=== PATIENT | male | born 1970 | race Caucasian/White ===

== ENCOUNTER 2017-03-10 16:56 | Observation (INO) | payer SELFPAY ==
[~2017-03-10] VITALS: Ht 182.9 cm; Wt 120.0 kg
[~2017-03-10 16:56] MED LIST: ALPR.5 PO; HYDR-3535 PO; LISI-515 PO
[2017-03-10 17:18] VITALS: BP 156/87; PULSE 85; RESP 18; TEMP 99.1; O2SAT 94
[2017-03-10 17:28] VITALS: BP 156/87; PULSE 95; RESP 18; TEMP 99.1; O2SAT 95
[2017-03-10] MEDS ORDERED: ASPI81CH CHEW (17:33)
[2017-03-10] MEDS ORDERED: AMLO5TAB2 PO (17:33)
[2017-03-10 18:00] VITALS: O2SAT 98
--- NOTE | 2017-03-10 18:09 | PD ---
HPI Chief Complaint: Chest Pain Time Seen by Provider: 18:06 Travel History International Travel<30 days: No Contact w/Intl Traveler<30days: No Traveled to known affect area: No History of Present Illness HPI 46-year-old male presents to the emergency department via EMS for evaluation of sharp chest pain that started today. He states that he woke up with sharp left- sided chest pain this morning. It went away, but resumed when he was going to a around 2 PM. He states the sharp lasting only a few seconds at a time. The patient states the EMS gave him aspirin and 1 spray of nitroglycerin , which did help his pain. He states that he had similar pain back in January went to [facility], [place]. He states he had a stress test done at that time. He does not know the results, but was discharged. 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 He reports history of hypertension and is on lisinopril and amlodipine. Patient is chest pain-free at this time. He denies any recent surgery or travel. No hemoptysis. No leg edema. No history DVT or PE. No history of cancer. PFSH Past Medical History Hx Anticoagulant Therapy: No Anxiety: Yes Heart Rhythm Problems: Yes Cardiovascular Problems: Yes (HTN ) Chemotherapy: No Diabetes: No Diminished Hearing: No Hypertension: Yes Respiratory: No Tetanus Vaccination: < 5 Years Influenza Vaccination: No ?: Not Past Surgical History Hysterectomy: No Social History Alcohol Use: Yes (OCCASIONAL) Tobacco Use: No Substance Use: No (MARIJUANA OCCASIONALLY) Allergies-Medications (Allergen,Severity, Reaction): Coded Allergies: No Known Allergies (Unverified , 07/23/16) Reported Meds & Prescriptions Reported Meds & Active Scripts Active Lisinopril 20 Mg Tab 20 Mg PO DAILY Reported Aspirin 81 Mg Chew 81 Mg CHEW DAILY Amlodipine (Amlodipine Besylate) 5 Mg Tab 5 Mg PO DAILY Lortab (Hydrocodone-Acetaminophen) 10-325 Mg Tab 1 Tab PO Q4H PRN Xanax (Alprazolam) 0.5 Mg Tab 0.5 Mg PO BID PRN Review of Systems Except as stated in HPI: all other systems reviewed are Neg Physical Exam Narrative GENERAL: Well-nourished, well-developed male patient, ambulatory. Afebrile. SKIN: Focused skin assessment warm/dry. HEAD: Normocephalic. Atraumatic. EYES: No scleral icterus. No injection or drainage. NECK: Supple, trachea midline. No JVD or lymphadenopathy. CARDIOVASCULAR: Regular rate and rhythm without murmurs, gallops, or rubs. RESPIRATORY: Breath sounds equal bilaterally. No accessory muscle use. Lungs sounds are clear to auscultation. GASTROINTESTINAL: Abdomen soft, non-tender, nondistended. MUSCULOSKELETAL: No cyanosis, or edema. BACK: Nontender without obvious deformity. No CVA tenderness. Data Data Last Documented VS Vital Signs Date Time Temp Pulse Resp B/P Pulse Ox O2 Delivery O2 Flow Rate FiO2 03/10/17 20:20 98 18 132/72 97 Room Air 03/10/17 17:28 99.1 Orders Basic Metabolic Panel (Bmp) (03/10/17 18:05) Ckmb (Isoenzyme) Profile (03/10/17 18:05) Complete Blood Count With Diff (03/10/17 18:05) Magnesium (Mg) (03/10/17 18:05) Prothrombin Time / Inr (Pt) (03/10/17 18:05) Act Partial Throm Time (Ptt) (03/10/17 18:05) Troponin I (03/10/17 18:05) Chest, Single Ap (03/10/17 18:05) Ecg Monitoring (03/10/17 18:05) Bilateral Bp Monitoring (03/10/17 18:05) Iv Access Insert/Monitor (03/10/17 18:05) Oximetry (03/10/17 18:05) Oxygen Administration (03/10/17 18:05) Sodium Chloride 0.9% Flush (Ns Flush) (03/10/17 18:15) Electrocardiogram (03/10/17 17:21) Labs Laboratory Tests Test 03/10/17 18:00 White Blood Count 8.4 TH/MM3 Red Blood Count 4.65 MIL/MM3 Hemoglobin 14.5 GM/DL Hematocrit 41.7 % Mean Corpuscular Volume 89.7 FL Mean Corpuscular Hemoglobin 31.2 PG Mean Corpuscular Hemoglobin 34.7 % Concent Red Cell Distribution Width 14.0 % Platelet Count 132 TH/MM3 Mean Platelet Volume 10.8 FL Neutrophils (%) (Auto) 56.4 % Lymphocytes (%) (Auto) 30.4 % Monocytes (%) (Auto) 10.5 % Eosinophils (%) (Auto) 1.2 % Basophils (%) (Auto) 1.5 % Neutrophils # (Auto) 4.7 TH/MM3 Lymphocytes # (Auto) 2.6 TH/MM3 Monocytes # (Auto) 0.9 TH/MM3 Eosinophils # (Auto) 0.1 TH/MM3 Basophils # (Auto) 0.1 TH/MM3 CBC Comment DIFF FINAL Differential Comment Prothrombin Time 11.8 SEC Prothromb Time International 1.1 RATIO Ratio Activated Partial 28.4 SEC Thromboplast Time Sodium Level 138 MEQ/L Potassium Level 3.8 MEQ/L Chloride Level 105 MEQ/L Carbon Dioxide Level 25.8 MEQ/L Anion Gap 7 MEQ/L Blood Urea Nitrogen 17 MG/DL Creatinine 0.83 MG/DL Estimat Glomerular Filtration 101 ML/MIN Rate Random Glucose 106 MG/DL Calcium Level 9.0 MG/DL Magnesium Level 2.3 MG/DL Total Creatine Kinase 55 U/L Troponin I LESS THAN 0.02 NG/ML MDM Medical Decision Making Medical Screen Exam Complete: Yes Emergency Medical Condition: Yes Medical Record Reviewed: Yes Interpretation(s) Last Impressions Chest X-Ray 03/10/171804 Signed Impressions: Service Date/Time: , March 10, 2017 18:06 - CONCLUSION: The lungs are clear. Clif Andres MD Differential Diagnosis Atypical chest pain versus ACS versus pneumonia versus pneumothorax Narrative Course 46-year-old male presents to the emergency department via EMS for evaluation of sharp intermittent left-sided chest pain that started this morning and worsened on his way to a . He states he recently had a stress test at [facility], [place]. I will attempt to obtain these records. Patient is chest pain-free at this time. He received nitroglycerin 1 and aspirin via EMS. EKG shows SR, HR 89, no acute ST changes. CBC, BMP, CK, troponin, magnesium, PTT, PT/INR, chest x-ray are ordered and pending. CBC shows no acute abnormality. BMP is unremarkable. CK is 55. Troponin is less than 0.02. Magnesium is 2.3. Coags are unremarkable. Chest x-ray shows t he lungs are clear. I receive the records from [facility], [place]. On stress test report, it is normal, but then on the discharge summary as well as a stress test was abnormal does not give details. Patient states he had to jump off the treadmill due to his heart racing. I discussed this with my attending physician , Dr. Chandler, who recommends admission to chest pain center for serial EKG and enzymes. The patient agrees to this. Diagnosis Primary Impression: Chest pain Qualified Code: R07.9 - Chest pain, unspecified type Admitting Information Admitting Physician Requests: Brit Barclay Mar 10, 2017 18:09
[2017-03-10] MEDS ORDERED: SODIUM CHLORIDE 0.9% FLUSH 10 ML FLUSH IVF PRN (18:15)
[2017-03-10 18:22] LABS: AUTOMATED NEUTROPHIL # 4.7 TH/MM3 (1.8-7.7); BASOPHIL # 0.1 TH/MM3 (0-0.2); BASOPHIL % 1.5 % (0.0-2.0); EOSINOPHIL # 0.1 TH/MM3 (0-0.4); EOSINOPHIL % 1.2 % (0.0-4.0); HEMATOCRIT 41.7 % (39.0-51.0); HEMO FLAGS DIFF FINAL; LYMPH % 30.4 % (9.0-44.0); LYMPHOCYTE # 2.6 TH/MM3 (1.0-4.8); MEAN CELL VOLUME 89.7 FL (80.0-100.0); MEAN CORPUSCULAR HEMOGLOBIN 31.2 PG (27.0-34.0); MEAN CORPUSCULAR HGB CONC 34.7 % (32.0-36.0); MONO % 10.5 % (0.0-8.0); NEUT % 56.4 % (16.0-70.0); PLATELET COUNT 132 TH/MM3 (150-450); RED BLOOD COUNT 4.65 MIL/MM3 (4.50-5.90); WHITE BLOOD COUNT 8.4 TH/MM3 (4.0-11.0)
[2017-03-10 18:39] LABS: ANION GAP 7 MEQ/L (5-15); BICARBONATE 25.8 MEQ/L (21.0-32.0); BLOOD UREA NITROGEN 17 MG/DL (7-18); CHLORIDE 105 MEQ/L (98-107); GLOMERULAR FILTRATION RATE 101 ML/MIN (>89); MAGNESIUM 2.3 MG/DL (1.5-2.5); POTASSIUM 3.8 MEQ/L (3.5-5.1); SODIUM (NA) 138 MEQ/L (136-145)
[2017-03-10 18:44] LABS: CREATINE KINASE 55 U/L (39-308)
[2017-03-10 19:20] LABS: APTT (PATIENT) 28.4 SEC (24.3-30.1); INTERNATIONAL NORMALIZED RATIO 1.1 RATIO; PROTHROMBIN TIME - PATIENT 11.8 SEC (9.8-11.6)
[2017-03-10 19:30] VITALS: BP 139/81; PULSE 87; RESP 18; O2SAT 95
--- NOTE | 2017-03-10 19:34 | RADRPT ---
EXAM DATE/TIME: 03/10/2017 18:06 [facility] COMPARISON: No previous studies available for comparison. INDICATIONS : Patient has had chest pain since this morning. MEDICAL HISTORY : Hypertension. SURGICAL HISTORY : None. ENCOUNTER: Initial ACUITY: 1 day PAIN SCORE: 8/10 LOCATION: Bilateral chest FINDINGS: A single view of the chest demonstrates the lungs to be symmetrically aerated without evidence of mas s, infiltrate or effusion. The cardiomediastinal contours are unremarkable. Osseous structures are intact. CONCLUSION: The lungs are clear. Clif Andres MD on March 10, 2017 at 19:32 Board Certified Radiologist. This report was verified electronically.
[2017-03-10 20:20] VITALS: BP 132/72; PULSE 98; RESP 18; O2SAT 97
[2017-03-10 23:31] VITALS: BP 134/68
[2017-03-10 23:44] LABS: CREATINE KINASE 39 U/L (39-308)
[2017-03-11 01:22] LABS: CREATINE KINASE 42 U/L (39-308)
[2017-03-11 05:28] VITALS: BP 128/67; PULSE 67; RESP 21; TEMP 98.4; O2SAT 100
[2017-03-11 06:14] VITALS: PULSE 74
[2017-03-11 06:15] VITALS: PULSE 74
[2017-03-11 07:02] VITALS: BP 141/68; PULSE 64; RESP 21; TEMP 97.8; O2SAT 100
[2017-03-11 07:34] VITALS: BP 136/67; PULSE 75; RESP 18; TEMP 98.8; O2SAT 95
--- NOTE | 2017-03-11 08:19 | HHI.DCPOC ---
Discharge Care Plan Diagnosis: (1) Chest pain (2) Hypertension (3) Anxiety Goals to Promote Your Health * To prevent worsening of your condition and complications * To maintain your health at the optimal level Directions to Meet Your Goals Take your medications as prescribed Follow your dietary instruction Follow activity as directed Keep your appointments as scheduled Take your immunizations and boosters as scheduled If your symptoms worsen call your PCP, if no PCP go to Urgent Care Center or Emergency Room Smoking is Dangerous to Your Health. Avoid second hand smoke Call the 24-hour hour crisis hotline for domestic abuse at Alexis Macdonald Mar 11, 2017 08:19
[2017-03-11] MEDS ORDERED: SODIUM CHLORIDE 0.9% FLUSH 10 ML FLUSH IV FLUSH SCH (09:00)
--- NOTE | 2017-03-11 09:09 | HHI.HP ---
HPI Primary Care Physician No Primary Care Physician Chief Complaint Chest pain History of Present Illness This is a 46-year-old male that presents to ED with a point of chest discomfort. He'll left-sided sharp discomfort that'll last a few seconds at time but continue to recur. It began while he was driving to one of his best friends funerals. His best friend is from electrocution. He was short of breath and nauseous with the symptoms. No diaphoresis. Denies prior knowledge of coronary artery disease and states he had a workup recently at [facility]. Upon reviewing records had a nonischemic Sage protocol ETT one month ago. Patient states "I felt like I was being overwhelmed." He does suffer from anxiety and takes Xanax when necessary for this. Denies recent illness. Denies fevers or chills. Review of Systems General: Patient denies fevers, chills recent, and recent travel HEENT: Patient denies headache, sore throat, difficulty swallowing. Cardiovascular: Has the chest discomfort as mentioned above. Denies sensation of heart beating rapidly or irregularly. No syncope. Respiratory: He was short of breath. Denies inspirational chest discomfort. Denies coughing wheezing or hemoptysis. GI: He was nauseous. Patient denies vomiting, diarrhea, abdominal pain, bloody stools. Musculoskeletal: Patient denies joint pain or edema. Denies calf pain or edema. Neurovascular: Patient denies numbness, tingling, weakness in extremities. Denies headache. Endocrine: Denies polyuria and polydipsia. Hematologic: Denies easy bruising. Skin: Denies rash or itching. Past Family Social History Allergies: Coded Allergies: No Known Allergies (Unverified , 07/23/16) Past Medical History Hypertension, chronic back pain, anxiety. Denies diabetes, hyperlipidemia, and CAD. Past Surgical History Denies Reported Medications Reported Meds & Active Scripts Active Lisinopril 20 Mg Tab 20 Mg PO DAILY Reported Aspirin 81 Mg Chew 81 Mg CHEW DAILY Amlodipine (Amlodipine Besylate) 5 Mg Tab 5 Mg PO DAILY Lortab (Hydrocodone-Acetaminophen) 10-325 Mg Tab 1 Tab PO Q4H PRN Xanax (Alprazolam) 0.5 Mg Tab 0.5 Mg PO BID PRN Active Ordered Medications Current Medications Medications (Trade) Dose Ordered Sig/Vidya Route Start Time Stop Time Status Last Admin (NS Flush) 2 ml UNSCH PRN IVF 03/10/17 18:15 (NS Flush) 2 ml BID IV FLUSH 03/11/17 09:00 03/11/17 00:06 Family History Mother had a CABG a 46. Father at age 62 of a myocardial infarction. Social History Patient is a nonsmoker. Denies alcohol. Smokes marijuana occasionally. Physical Exam Vital Signs Vital Signs Date Time Temp Pulse Resp B/P Pulse Ox O2 Delivery O2 Flow Rate FiO2 03/11/17 08:10 21 03/11/17 07:34 98.8 75 18 136/67 95 03/11/17 07:02 97.8 64 21 141/68 100 03/11/17 06:15 74 03/11/17 06:14 74 03/11/17 05:28 98.4 67 21 128/67 100 03/10/17 23:31 80 18 134/68 94 03/10/17 20:20 98 18 132/72 97 Room Air 03/10/17 19:30 87 18 139/81 95 Room Air 03/10/17 18:00 98 Room Air 03/10/17 18:00 98 Room Air 03/10/17 17:28 18 94 Room Air 03/10/17 17:28 99.1 95 18 156/87 95 Room Air 03/10/17 17:18 99.1 85 18 156/87 94 Physical Exam GENERAL: This is a well-nourished, well-developed patient, in no apparent distress. Patient speaks in clear complete sentences. Patient is pleasant. HEENT: Head is atraumatic and normocephalic. Neck is supple without lymphadenopathy and trachea is midline. No JVD or carotid bruits. CARDIOVASCULAR: Regular rate and rhythm without murmurs, gallops, or rubs. RESPIRATORY: Clear to auscultation. Breath sounds equal bilaterally. No wheezes , rales, or rhonchi. Chest wall is nontender. No use of accessory muscles. GASTROINTESTINAL: Abdomen is nontender, nondistended. Abdomen soft. No obvious pulsatile mass or bruit. No CVA tenderness. Strong femoral pulses bilaterally. Normal bowel sounds in all quadrants. MUSCULOSKELETAL: Patient is moving upper and lower extremities freely. No calf tenderness or edema, no Homans sign. Strong pulses in upper and lower extremities. NEUROLOGICAL: Patient is alert and oriented. Cranial nerves 2-12 are grossly intact. No focal deficits and speech is clear. SKIN: No rash and turgor is normal. Laboratory Laboratory Tests Test 03/10/17 03/10/17 03/11/17 18:00 22:30 00:24 White Blood Count 8.4 Red Blood Count 4.65 Hemoglobin 14.5 Hematocrit 41.7 Mean Corpuscular Volume 89.7 Mean Corpuscular Hemoglobin 31.2 Mean Corpuscular Hemoglobin 34.7 Concent Red Cell Distribution Width 14.0 Platelet Count 132 Mean Platelet Volume 10.8 Neutrophils (%) (Auto) 56.4 Lymphocytes (%) (Auto) 30.4 Monocytes (%) (Auto) 10.5 Eosinophils (%) (Auto) 1.2 Basophils (%) (Auto) 1.5 Neutrophils # (Auto) 4.7 Lymphocytes # (Auto) 2.6 Monocytes # (Auto) 0.9 Eosinophils # (Auto) 0.1 Basophils # (Auto) 0.1 CBC Comment DIFF FINAL Differential Comment Prothrombin Time 11.8 Prothromb Time International 1.1 Ratio Activated Partial 28.4 Thromboplast Time Sodium Level 138 Potassium Level 3.8 Chloride Level 105 Carbon Dioxide Level 25.8 Anion Gap 7 Blood Urea Nitrogen 17 Creatinine 0.83 Estimat Glomerular Filtration 101 Rate Random Glucose 106 Calcium Level 9.0 Magnesium Level 2.3 Total Creatine Kinase 55 39 42 Troponin I LESS THAN 0.02 LESS THAN 0.02 LESS THAN 0.02 Result Diagram: 03/10/17 1800 03/10/17 1800 Imaging Last 24 hours Impressions Chest X-Ray 03/10/17 1805 Signed Impressions: Service Date/Time: March 18:06 - CONCLUSION: The lungs are clear. Clif Andres MD Course EKGs have sinus rhythm without significant ST segment depressions or elevations. Assessment and Plan Assessment and Plan * Atypical chest pain: Patient has had serial cardiac enzymes and EKGs for ruling out purposes. He was seen by Dr. Erickson of cardiology in the chest pain center. We have reviewed records and he had a nonischemic Sage protocol ETT January 2017. His symptoms appear to be more related to anxiety and he'll be discharged home with instructions to follow-up with his primary care physician. * Hypertension: Continue current medication. * Chronic back pain: Continue current medication. * Anxiety: Continue current medication. Patient is stable at this time. He is agreeable to this plan. Alexis Macdonald Mar 11, 2017 09:09
--- NOTE | 2017-03-11 14:00 | EKG ---
Date Performed: 03/11/2017 Time Performed: 06:40:18 PTAGE: 46 years EKG: Sinus rhythm NORMAL ECG Since PREVIOUS TRACING , no significant change noted PREVIOUS TRACIN03/11/2017 06.39 DOCTOR: Qi Erickson Interpretating Date/Time 03/11/2017 13:59:04
--- NOTE | 2017-03-11 14:00 | EKG ---
Date Performed: 03/11/2017 Time Performed: 00:36:17 PTAGE: 46 years EKG: Sinus rhythm NORMAL ECG Since PREVIOUS TRACING , no significant change noted PREVIOUS TRACIN03/11/2017 00.35 DOCTOR: Qi Erickson Interpretating Date/Time 03/11/2017 13:59:31
--- NOTE | 2017-03-11 14:01 | EKG ---
Date Performed: 03/10/2017 Time Performed: 22:35:34 PTAGE: 46 years EKG: Sinus rhythm NORMAL ECG Since PREVIOUS TRACING , no significant change noted PREVIOUS TRACIN03/10/2017 17.21 DOCTOR: Qi Erickson Interpretating Date/Time 03/11/2017 13:59:46
--- NOTE | 2017-03-11 14:05 | EKG ---
Date Performed: 03/10/2017 Time Performed: 17:21:50 PTAGE: 46 years EKG: Sinus rhythm POSSIBLE INFERIOR MYOCARDIAL INFARCTION BORDERLINE ECG NO PREVIOUS TRACING DOCTOR: Qi Erickson Interpretating Date/Time 03/11/2017 14:03:57
== END 2017-03-11 08:50 | disposition home or self-care (01) ==
LOC: NEPE 16:56 → NEDA 21:25 → NEPFCDU 23:39
PROVIDERS: ADMIT Internal Medicine Interventional Cardiology; ATTEND Internal Medicine Interventional Cardiology
DX: R07.89 Other chest pain (principal); R06.02 Shortness of breath; I10 Essential (primary) hypertension; F41.9 Anxiety disorder, unspecified; G89.29 Other chronic pain; F12.90 Cannabis use, unspecified, uncomplicated; M54.9 Dorsalgia, unspecified; Z79.82 Long term (current) use of aspirin; Z79.899 Other long term (current) drug therapy
CPT/HCPCS: 71010; 80048; 82550; 83735; 84484; 85025; 85610; 85730; 93005; 99285; G0378

== ENCOUNTER 2017-08-01 15:09 | Emergency (ER) | payer SELFPAY ==
[~2017-08-01] VITALS: Ht 182.9 cm; Wt 120.0 kg
[~2017-08-01 15:09] MED LIST changes: +AMLO5TAB2 PO; +ASPI-516 CHEW
[2017-08-01 15:11] VITALS: BP 224/111; PULSE 96; RESP 16; TEMP 97.9; O2SAT 96
[2017-08-01 15:21] VITALS: BP_SYST 179; BP_SYST 182; BP_DIAS 88; BP_DIAS 92; PULSE 92; RESP 17; O2SAT 98
[2017-08-01] MEDS ORDERED: LORazepam 1 MG TAB PO ONE (15:45)
[2017-08-01] MEDS ORDERED: SODIUM CHLORIDE 0.9% FLUSH 10 ML FLUSH IVF PRN (15:45)
--- NOTE | 2017-08-01 16:03 | PD ---
HPI Chief Complaint: Hypertension Time Seen by Provider: 15:36 Travel History International Travel<30 days: No Contact w/Intl Traveler<30days: No Traveled to known affect area: No History of Present Illness HPI Patient is a 47-year-old male presents emergency department for generalized complaints and just not feeling well. States that 2 days ago he had similar complaints and went to [facility], he states he had been off his blood pressure medication for some time was noted to be hypertensive there was restarted on his medications at home, no blood work was sent. Patient states he has family history of his mother at 43 from a stroke, he denies any focalized weakness chest pain shortness of breath abdominal pain nausea vomiting. PFSH Past Medical History Hx Anticoagulant Therapy: No Anxiety: Yes Heart Rhythm Problems: Yes Cardiac Catheterization: No Cardiovascular Problems: Yes High Cholesterol: Yes Chemotherapy: No Congestive Heart Failure: No Diabetes: Yes Patient Takes Glucophage: No Diminished Hearing: No Hypertension: Yes Respiratory: No Tetanus Vaccination: > 5 Years Influenza Vaccination: No Past Surgical History Coronary Artery Bypass Graft: No Hysterectomy: No Family History Family Myocardial Infarction: Yes (Dad Mi at 62) Social History Alcohol Use: Yes (OCCASIONAL) Tobacco Use: No Substance Use: Yes (MARIJUANA OCCASIONALLY) Allergies-Medications (Allergen,Severity, Reaction): Coded Allergies: No Known Allergies (Unverified Adverse Reaction, Unknown, 08/01/17) Reported Meds & Prescriptions Reported Meds & Active Scripts Active Lisinopril 20 Mg Tab 20 Mg PO DAILY Reported Amlodipine (Amlodipine Besylate) 5 Mg Tab 5 Mg PO DAILY Xanax (Alprazolam) 0.5 Mg Tab 0.5 Mg PO BID PRN Review of Systems Except as stated in HPI: all other systems reviewed are Neg Physical Exam Narrative GENERAL: Well-developed overweight, anxious. SKIN: Focused skin assessment warm/dry. HEAD: Atraumatic. Normocephalic. EYES: Pupils equal and round. No scleral icterus. No injection or drainage. ENT: No nasal bleeding or discharge. Mucous membranes pink and moist. NECK: Trachea midline. No JVD. CARDIOVASCULAR: Regular rate and rhythm. No murmur appreciated. RESPIRATORY: No accessory muscle use. Clear to auscultation. Breath sounds equal bilaterally. GASTROINTESTINAL: Abdomen soft, non-tender, nondistended. Hepatic and splenic margins not palpable. MUSCULOSKELETAL: No obvious deformities. No clubbing. No cyanosis. No edema. NEUROLOGICAL: Awake and alert. Ground nerves II through XII are grossly intact and nonfocal, 5 out of 5 strength in all 4 extremities.. PSYCHIATRIC: Appropriate mood and affect; insight and judgment normal. Data Data Last Documented VS Vital Signs Date Time Temp Pulse Resp B/P (MAP) Pulse Ox O2 Delivery O2 Flow Rate FiO2 08/01/17 17:01 89 16 181/90 (120) 97 Room Air 08/01/17 15:11 97.9 Orders Orders Electrocardiogram (08/01/17 15:43) Basic Metabolic Panel (Bmp) (08/01/17 15:43) Complete Blood Count With Diff (08/01/17 15:43) Troponin I (08/01/17 15:43) Chest, Single Ap (08/01/17 15:43) Ecg Monitoring (08/01/17 15:43) Iv Access Insert/Monitor (08/01/17 15:43) Oximetry (08/01/17 15:43) Oxygen Administration (08/01/17 15:43) Sodium Chloride 0.9% Flush (Ns Flush) (08/01/17 15:45) Lorazepam (Ativan) (08/01/17 15:45) Ed Discharge Order (08/01/17 18:04) Labs Laboratory Tests Test 08/01/17 16:00 White Blood Count 8.8 TH/MM3 Red Blood Count 5.18 MIL/MM3 Hemoglobin 15.5 GM/DL Hematocrit 46.4 % Mean Corpuscular Volume 89.5 FL Mean Corpuscular Hemoglobin 29.9 PG Mean Corpuscular Hemoglobin Concent 33.4 % Red Cell Distribution Width 14.3 % Platelet Count 144 TH/MM3 Mean Platelet Volume 10.0 FL Neutrophils (%) (Auto) 65.5 % Lymphocytes (%) (Auto) 23.9 % Monocytes (%) (Auto) 9.1 % Eosinophils (%) (Auto) 0.6 % Basophils (%) (Auto) 0.9 % Neutrophils # (Auto) 5.8 TH/MM3 Lymphocytes # (Auto) 2.1 TH/MM3 Monocytes # (Auto) 0.8 TH/MM3 Eosinophils # (Auto) 0.0 TH/MM3 Basophils # (Auto) 0.1 TH/MM3 CBC Comment DIFF FINAL Differential Comment Blood Urea Nitrogen 19 MG/DL Creatinine 0.88 MG/DL Random Glucose 99 MG/DL Calcium Level 9.1 MG/DL Sodium Level 138 MEQ/L Potassium Level 4.0 MEQ/L Chloride Level 102 MEQ/L Carbon Dioxide Level 28.8 MEQ/L Anion Gap 7 MEQ/L Estimat Glomerular Filtration Rate 94 ML/MIN Troponin I LESS THAN 0.02 NG/ML MDM Medical Decision Making Medical Screen Exam Complete: Yes Emergency Medical Condition: Yes Differential Diagnosis Elevated blood pressure, hypertensive emergency unlikely, anxiety, Narrative Course Patient roomed emerged permit, initial workup here including EKG chest x-ray basic labs are reassuring. Was given Ativan, blood pressure remains elevated and I recommended that he needs close follow-up with a primary care physician and discussed the [facility] clinic. I did discuss that while his blood pressure remains elevated he is at increased risk of stroke and heart attack as well as being on dialysis. He verbalizes understanding and agreement. At this time there is no indication for emergent management of his blood pressure and to lower his blood pressure acutely/rapidly may actually be dangerous. Patient is stable for discharge at this time. Diagnosis Primary Impression: Accelerated hypertension Referrals: [facility] Patient Instructions: General Instructions, Hypertension (DC) Additional Instructions: Take her blood pressure medicines as prescribed you need to follow up with a primary care physician for an adequate checkup to help prevent stroke kidney disease and heart attack. Disposition: 01 DISCHARGE HOME Condition: Stable Vaughn Workman MD Aug 01, 2017 16:03
--- NOTE | 2017-08-01 16:24 | RADRPT ---
EXAM DATE/TIME: 08/01/2017 16:05 [facility] COMPARISON: CHEST SINGLE AP, March 10, 2017, 18:06. INDICATIONS : Chest pain and flutter. MEDICAL HISTORY : Hypertension. SURGICAL HISTORY : None. ENCOUNTER: Initial ACUITY: 1 week PAIN SCORE: 4/10 LOCATION: Bilateral chest FINDINGS: Single AP view of the chest. The lungs are clear. Cardiomediastinal silhouette within normal limits. No evidence of pleural effusion or pneumothorax. CONCLUSION: No acute cardiopulmonary disease identified. Anam Soares MD on August 01, 2017 at 16:22 Board Certified Radiologist. This report was verified electronically.
[2017-08-01 16:35] LABS: AUTOMATED NEUTROPHIL # 5.8 TH/MM3 (1.8-7.7); BASOPHIL # 0.1 TH/MM3 (0-0.2); BASOPHIL % 0.9 % (0.0-2.0); EOSINOPHIL % 0.6 % (0.0-4.0); HEMATOCRIT 46.4 % (39.0-51.0); HEMOGLOBIN 15.5 GM/DL (13.0-17.0); LYMPH % 23.9 % (9.0-44.0); LYMPHOCYTE # 2.1 TH/MM3 (1.0-4.8); MEAN CELL VOLUME 89.5 FL (80.0-100.0); MEAN CORPUSCULAR HEMOGLOBIN 29.9 PG (27.0-34.0); MEAN CORPUSCULAR HGB CONC 33.4 % (32.0-36.0); MONO % 9.1 % (0.0-8.0); MONOCYTE # 0.8 TH/MM3 (0-0.9); NEUT % 65.5 % (16.0-70.0); PLATELET COUNT 144 TH/MM3 (150-450); RED BLOOD COUNT 5.18 MIL/MM3 (4.50-5.90); RED CELL DISTRIBUTION WIDTH 14.3 % (11.6-17.2); WHITE BLOOD COUNT 8.8 TH/MM3 (4.0-11.0)
[2017-08-01 16:52] VITALS: O2SAT 97
[2017-08-01 16:52] LABS: BICARBONATE 28.8 MEQ/L (21.0-32.0); BLOOD UREA NITROGEN 19 MG/DL (7-18); CALCIUM 9.1 MG/DL (8.5-10.1); CHLORIDE 102 MEQ/L (98-107); CREATININE 0.88 MG/DL (0.60-1.30); GLOMERULAR FILTRATION RATE 94 ML/MIN (>89); GLUCOSE,RANDOM 99 MG/DL (74-106); SODIUM (NA) 138 MEQ/L (136-145)
[2017-08-01 16:57] LABS: TROPONIN I LESS THAN 0.02 NG/ML (0.02-0.05)
[2017-08-01 17:01] VITALS: BP 181/90; PULSE 89; RESP 16; O2SAT 97
--- NOTE | 2017-08-02 17:26 | EKG ---
Date Performed: 08/01/2017 Time Performed: 15:56:20 PTAGE: 47 years EKG: Sinus rhythm Since previous tracing, no significant change noted NORMAL ECG PREVIOUS TRACING : 03/11/2017 06.40 DOCTOR: Qi Erickson Interpretating Date/Time 08/02/2017 17:25:50
== END 2017-08-01 19:41 | disposition home or self-care (01) ==
LOC: NEPC 15:09
DX: I10 Essential (primary) hypertension (principal); E11.9 Type 2 diabetes mellitus without complications; E78.00 Pure hypercholesterolemia, unspecified; F41.9 Anxiety disorder, unspecified; F12.90 Cannabis use, unspecified, uncomplicated
CPT/HCPCS: 71010; 80048; 84484; 85025; 93005; 99285